=== PATIENT | male | born 1930 | race Caucasian/White ===

== ENCOUNTER 2018-08-03 10:47 | Inpatient (IN) | payer BC, MEDICARE | END 2018-08-06 11:50 | disposition home or self-care (01) | LOC: ER 10:47 → ED HOLD 14:24 → PCU 3S 19:22 | DX: I21.A1 Myocardial infarction type 2 (principal); J18.9 Pneumonia, unspecified organism; E87.1 Hypo-osmolality and hyponatremia; G90.8 Other disorders of autonomic nervous system; I48.91 Unspecified atrial fibrillation ==